=== PATIENT | female | born 1950 | race Two or more races ===

== ENCOUNTER 2016-11-24 20:40 | Inpatient (IN) | payer MEDICARE ==
--- NOTE | 2016-11-24 20:45 | ER Document Report ---
ED Medical Screen (RME) - General Stated Complaint: CHEST PAIN Time seen by provider: 20:41 Mode of Arrival: Wheelchair Information source: Patient Notes: Patient complains of chest burning that started couple hours ago. Also has shortness of breath. Denies pain radiation. Patient does have nausea and vomiting, no diarrhea. Patient states she has a lot of medical history, which is significant for diabetes and hypertension. Patient states she took Deepthi aspirin this afternoon. Has been sick with a cough and cold. Denies fever. I have greeted and performed a rapid initial assessment of this patient. A comprehensive ED assessment and evaluation of the patient, analysis of test results and completion of the medical decision making process will be conducted by additional ED providers. TRAVEL OUTSIDE OF THE [place] IN LAST 30 DAYS: No - Related Data Allergies/Adverse Reactions: No Known Allergies Allergy (Verified 02/17/13 10:26) Past Medical History - Past Medical History Cardiac Medical History: Reports: Hx Coronary Artery Disease, Hx Hypercholesterolemia, Hx Hypertension Denies: Hx Heart Attack Pulmonary Medical History: Reports: Hx Tuberculosis - hypothyroid Denies: Hx Asthma, Hx Bronchitis, Hx COPD, Hx Pneumonia Neurological Medical History: Denies: Hx Cerebrovascular Accident, Hx Seizures Endocrine Medical History: Reports: Hx Diabetes Mellitus Type 1, Hx Diabetes Mellitus Type 2, Hx Hypothyroidism GI Medical History: Reports: Hx Gastroesophageal Reflux Disease, Hx Hiatal Hernia Musculoskeltal Medical History: Reports Hx Arthritis Past Surgical History: Reports: Hx Hysterectomy, Hx Thyroid Surgery. Denies: Hx Pacemaker - Immunizations Hx Diphtheria, Pertussis, Tetanus Vaccination: Yes Physical Exam - Cardiovascular Rhythm: Regular Heart sounds: Normal auscultation - Abdominal Inspection: Normal Bowel sounds: Normal Tenderness: Tender - epigastric area
[2016-11-24 21:11] LABS: ALANINE AMINOTRANSFERASE 38 U/L (9-52); ALBUMIN 4.1 g/dL (3.5-5.0); ALKALINE PHOSPHATASE 130 U/L (38-126); ANION GAP 15 (5-19); ASPARTATE AMINO TRANSFERASE 52 U/L (14-36); BILIRUBIN,TOTAL 0.7 mg/dL (0.2-1.3); BLOOD UREA NITROGEN 21 mg/dL (7-20); CALCIUM 9.1 mg/dL (8.4-10.2); CARBON DIOXIDE 26 mmol/L (22-30); CHLORIDE 101 mmol/L (98-107); CREATINE KINASE 72 U/L (30-135); CREATININE RESULT 1.08 mg/dL (0.52-1.25); GLUCOSE 143 mg/dL (75-110); POTASSIUM 3.7 mmol/L (3.6-5.0); SODIUM 141.7 mmol/L (137-145); TOTAL PROTEIN 7.6 g/dL (6.3-8.2)
[2016-11-24 21:16] LABS: HEMATOCRIT 34.9 % (36.0-47.0); HEMOGLOBIN 11.4 g/dL (12.0-15.5); HGB HCT DIFFERENCE -0.7; MEAN CORPUSCULAR HEMOGLOBIN 25.9 pg (27.0-33.4); MEAN CORPUSCULAR HGB CONC 32.7 g/dL (32.0-36.0); MEAN CORPUSCULAR VOLUME 79 fl (80-97); RED BLOOD COUNT 4.41 10^6/uL (3.72-5.28); RED CELL DISTRIBUTION WIDTH 13.3 % (11.5-14.0); WHITE BLOOD COUNT 7.3 10^3/uL (4.0-10.5)
[2016-11-24 21:24] LABS: CREATINE KINASE MB 0.43 ng/mL (<4.55); PROTHROMBIN TIME 12.2 SEC (11.4-15.4); TROPONIN I < 0.012 ng/mL
[2016-11-24 21:37] LABS: BASOPHILS % (MANUAL) 1 % (0-2); EOSINOPHILS % (MANUAL) 0 % (0-6); LYMPHOCYTES % (MANUAL) 56 % (13-45); TOTAL CELLS COUNTED 100
[2016-11-24 21:39] LABS: HYPOCHROMASIA SLIGHT; PLATELET CLUMPS PRESENT; SMUDGE CELLS PRESENT
[2016-11-24] MEDS ORDERED: METOCLOPRAMIDE HCL ORAL SOLN 10 MG/10 ML UDCUP PO ONE (22:46)
[2016-11-24] MEDS ORDERED: LIDOCAINE 2% VISCOUS SOLN 20 ML UDCUP PO ONE (22:46)
[2016-11-24] MEDS ORDERED: MAG HYDROX/AL HYDROX/SIMETH SUSP 30 ML UDCUP PO ONE (22:46)
--- NOTE | 2016-11-24 22:51 | ER Document Report ---
ED General - General Chief Complaint: Chest Pain > 30 Stated Complaint: CHEST PAIN Mode of Arrival: Wheelchair Information source: Patient Notes: This is a 66-year-old female with a history of diabetes and hypertension among other medical problems to states that she has been sick with runny nose, coffee , and subjective fevers for the past 3 days. Today she states that she went to the pharmacy to ask the pharmacist for an ixiz-guf-[id number] cough medicine. She states that she went home and developed nausea and vomiting this evening. After she vomited she felt pain in her epigastric area radiating up into her chest which she described as feeling "on fire" at home she also felt weak and had trouble standing. Currently she still endorses epigastric discomfort that feels like a "punching pain". The pain does radiate into her central chest. She denies shortness of breath or diaphoresis. She does take Zantac for GERD and also has a history of a hiatal hernia. TRAVEL OUTSIDE OF THE [place] IN LAST 30 DAYS: No - Related Data Allergies/Adverse Reactions: No Known Allergies Allergy (Verified 02/17/13 10:26) Past Medical History - General Information source: Patient, [facility] Records - Social History Smoking Status: Never Smoker Chew tobacco use (# tins/day): No Frequency of alcohol use: None Drug Abuse: None Family History: Reviewed & Not Pertinent Patient has suicidal ideation: No Patient has homicidal ideation: No - Past Medical History Cardiac Medical History: Reports: Hx Coronary Artery Disease, Hx Hypercholesterolemia, Hx Hypertension Denies: Hx Heart Attack Pulmonary Medical History: Reports: Hx Tuberculosis - hypothyroid Denies: Hx Asthma, Hx Bronchitis, Hx COPD, Hx Pneumonia Neurological Medical History: Denies: Hx Cerebrovascular Accident, Hx Seizures Endocrine Medical History: Reports: Hx Diabetes Mellitus Type 1, Hx Diabetes Mellitus Type 2, Hx Hypothyroidism Renal/ Medical History: Denies: Hx Peritoneal Dialysis GI Medical History: Reports: Hx Gastroesophageal Reflux Disease, Hx Hiatal Hernia Musculoskeltal Medical History: Reports Hx Arthritis Past Surgical History: Reports: Hx Hysterectomy, Hx Thyroid Surgery. Denies: Hx Pacemaker - Immunizations Hx Diphtheria, Pertussis, Tetanus Vaccination: Yes Review of Systems - Review of Systems Notes: REVIEW OF SYSTEMS: CONSTITUTIONAL : As per history of present illness EENT: Sinus congestion CARDIOVASCULAR: As per history of present illness RESPIRATORY: As per history of present illness GASTROINTESTINAL: As per history of present illness. Mild constipation with last bowel movement being 2 days ago. GENITOURINARY: Denies difficulty urinating, painful urination, burning, frequency, or blood in urine. MUSCULOSKELETAL: Denies neck or back pain or joint pain or swelling. SKIN: Denies rash or skin lesions. HEMATOLOGIC : Denies easy bruising or bleeding. LYMPHATIC: Denies swollen, enlarged glands. NEUROLOGICAL: Denies altered mental status or loss of consciousness. Denies headache. PSYCHIATRIC: Denies anxiety or stress or depression. ALL OTHER SYSTEMS REVIEWED AND NEGATIVE. Physical Exam - Vital signs Vitals: Temp Pulse Resp BP Pulse Ox 97.7 F 76 20 139/52 H 97 11/24/16 20:43 11/24/16 20:43 11/24/16 20:43 11/24/16 20:43 11/24/16 20:43 - Notes Notes: PHYSICAL EXAMINATION: GENERAL: Well-appearing, well-nourished and in no acute distress. Pleasant and conversant HEAD: Atraumatic, normocephalic. EYES: Pupils equal round and reactive to light, extraocular movements intact, sclera anicteric, conjunctiva are normal. ENT: nares patent, oropharynx clear without exudates. Moist mucous membranes. NECK: Normal range of motion, supple without lymphadenopathy LUNGS: Breath sounds clear to auscultation bilaterally and equal. No wheezes rales or rhonchi. HEART: Regular rate and rhythm without murmurs ABDOMEN: Soft, epigastric tenderness to palpation.. No guarding, no rebound. No masses appreciated. EXTREMITIES: Normal range of motion, no pitting or edema. No cyanosis. NEUROLOGICAL: Cranial nerves grossly intact. Normal speech. No gross focal motor sensory deficits appreciated PSYCH: Normal mood, normal affect. SKIN: Warm, Dry, normal turgor, no rashes or lesions noted. Course - Re-evaluation Re-evalutation: Laboratory evaluation reveals significantly elevated lipase. Patient states that she has never had pancreatitis in the past. She does still have her gallbladder. She will be sent down for a CT of her abdomen. - Vital Signs Vital signs: Temp Pulse Resp BP Pulse Ox 97.7 F 76 18 129/59 H 95 11/24/16 23:32 11/24/16 23:32 11/24/16 23:32 11/24/16 23:32 11/24/16 23:32 - Laboratory Result Diagrams: 11/24/16 20:50 11/24/16 20:50 Laboratory results interpreted by me: 11/24/16 11/24/16 11/24/16 20:50 20:50 20:50 Hgb 11.4 L Hct 34.9 L MCV 79 L MCH 25.9 L Seg Neuts % (Manual) 30 L Lymphocytes % (Manual) 56 H Monocytes % (Manual) 2 L Metamyelocytes % 2 H BUN 21 H Est GFR (Non-Af Amer) 50 L Glucose 143 H AST 52 H Alkaline Phosphatase 130 H Lipase 10133.3 H - EKG Interpretation by Me Additional EKG results interpreted by me: 11/24/16 22:50 EKG at 2051 demonstrates normal sinus rhythm with a rate of 70. There is LVH. I see no ST elevation or depression. Discharge - Discharge Clinical Impression: Acute pancreatitis Qualifiers: Pancreatitis type: unspecified pancreatitis type Acute pancreatitis complication: unspecified Qualified Code(s): K85.90 - Acute pancreatitis without necrosis or infection, unspecified Cholelithiasis Qualifiers: Cholelithiasis location: gallbladder Cholecystitis presence: without cholecystitis Biliary obstruction: without biliary obstruction Qualified Code(s) : K80.20 - Calculus of gallbladder without cholecystitis without obstruction Condition: Stable Disposition: ADMITTED INPATIENT Admitting Provider: Hospitalist - Dr. Freed Unit Admitted: Medical Floor Referrals: JOHN PHILPIPE MD [Primary Care Provider] - Follow up as needed
[2016-11-24] MEDS ORDERED: PANTOPRAZOLE SODIUM 40 MG VIAL IV ONE (23:35)
[2016-11-24] MEDS ORDERED: NORMAL SALINE 1000 ML 1,000 ML IV ONE (23:35)
[2016-11-24] MEDS ORDERED: ONDANSETRON HCL INJ/PF 4 MG/2 ML SDV IV ONE (23:36)
[2016-11-25] MEDS ORDERED: INSULIN LISPRO 100 UNIT/ML 3 ML VIAL SUBCUT PRN (02:01)
[2016-11-25] MEDS ORDERED: DEXTROSE 40% GEL 15 GM TUBE PO PRN ×2 (02:01)
[2016-11-25] MEDS ORDERED: ONDANSETRON HCL INJ/PF 4 MG/2 ML SDV IV PRN ×2 (02:01→02:33)
[2016-11-25] MEDS ORDERED: DEXTROSE 50%-WATER 25 GM/50 ML DISP.SYRIN IV PRN ×2 (02:01)
[2016-11-25] MEDS ORDERED: GLUCAGON,HUMAN RECOMB 1 MG INJ IM PRN (02:01)
[2016-11-25] MEDS ORDERED: ACETAMINOPHEN 325 MG TABLET PO PRN ×2 (02:01→02:34)
[2016-11-25] MEDS ORDERED: KETOROLAC TROMETHAMINE INJ/PF 30 MG/1 ML SDV IV PRN (02:04)
[2016-11-25] MEDS ORDERED: MORPHINE SULFATE 10 MG/ML INJ IV PRN ×2 (02:04→09:52)
[2016-11-25] MEDS ORDERED: NORMAL SALINE 1000 ML 1,000 ML IV SCH ×2 (02:45→20:30)
[2016-11-25] MEDS: HEPARIN SOD (PORCINE) 5,000 UNIT/ML 1 ML SYRINGE SUBCUT SCH ×3 (05:55→22:09)
--- NOTE | 2016-11-25 06:49 | PDOC H&P ---
History of Present Illness Admission Date/PCP: 11/25/16 02:01 JOHN PHILIPPE MD Patient complains of: Chest and epigastric pain History of Present Illness: ALINE OVERTON is a 66 year old female with a past medical history of diabetes, dyslipidemia, GERD and hypertension who had been her usual state of health until approximately 3 days ago having complaints of a viral upper respiratory infection with cough, runny nose, congestion, nausea and subjective fevers. Worsening after taking nevr-dta-kzutkei cough medicine including vomiting of gastric content and subsequently sought evaluation in the emergency room where she was found to have deep epigastric pain. In the emergency room she's found to have a lipase of 12,[address] of the abdomen pelvis showing fatty infiltration of the head of the pancreas without stranding or signs of necrosis. She was started on IV fluids, symptomatic management and referred to the hospitalist for admission. Patient states she had recently been started on a medication for blood pressure possibly hydrochlorothiazide. She admits a similar presentation approximately 2 years ago with unclear diagnosis. Past Medical History Cardiac Medical History: Reports: Coronary Artery Disease, Hyperlipidema, Hypertension Denies: Myocardial Infarction Pulmonary Medical History: Reports: Tuberculosis - hypothyroid Denies: Asthma, Bronchitis, Chronic Obstructive Pulmonary Disease (COPD), Pneumonia Neurological Medical History: Denies: Seizures Endocrine Medical History: Reports: Diabetes Mellitus Type 1, Diabetes Mellitus Type 2, Hypothyroidism GI Medical History: Reports: Gastroesophageal Reflux Disease, Hiatal Hernia Musculoskeltal Medical History: Reports: Arthritis Hematology: Denies: Anemia Past Surgical History Past Surgical History: Reports: Hysterectomy Denies: Pacemaker Social History Information Source: Patient Lives with: Family Smoking Status: Never Smoker Frequency of Alcohol Use: None Hx Recreational Drug Use: No Drugs: None - Advance Directive Resuscitation Status: Full Code Family History Family History: Malignancy - Sister with breast cancer and all other family members otherwise with unknown diagnosis Parental Family History Reviewed: Yes Children Family History Reviewed: Yes Sibling(s) Family History Reviewed.: Yes Medication/Allergy Home Medications: Lisinopril 1 tab PO DAILY 07/02/12 Rosuvastatin Calcium [Crestor 20 mg Tablet] 1 tab PO DAILY 07/02/12 Esomeprazole Magnesium [Nexium] 1 tab PO DAILY 11/25/16 Glipizide [Glocotrol 10 Mg Tablet] 1 tab PO BID 11/25/16 Hydrochlorothiazide 1 tab PO DAILY 11/25/16 Levothyroxine Sodium 1 tab PO DAILY 11/25/16 Meloxicam 1 tab PO DAILY 11/25/16 Pioglitazone HCl 1 tab PO DAILY 11/25/16 Allergies/Adverse Reactions: No Known Allergies Allergy (Verified 02/17/13 10:26) Review of Systems Constitutional: PRESENT: as per HPI, anorexia, fatigue, fever(s). ABSENT: night sweats, weakness, weight loss Eyes: ABSENT: visual disturbances Ears: ABSENT: hearing changes Cardiovascular: ABSENT: chest pain, dyspnea on exertion, edema, orthropnea, palpitations Respiratory: ABSENT: cough, hemoptysis Gastrointestinal: PRESENT: abdominal pain, bloating, heartburn, nausea, vomiting. ABSENT: coffee ground emesis, constipation, diarrhea, dysphagia, hematemesis, hematochezia, melena Genitourinary: ABSENT: dysuria, hematuria Musculoskeletal: ABSENT: joint swelling Integumentary: ABSENT: rash, wounds Neurological: ABSENT: abnormal gait, abnormal speech, confusion, dizziness, focal weakness, syncope Psychiatric: ABSENT: anxiety, depression, homidical ideation, suicidal ideation Endocrine: ABSENT: cold intolerance, heat intolerance, polydipsia, polyuria Hematologic/Lymphatic: ABSENT: easy bleeding, easy bruising Physical Exam Vital Signs: Temp Pulse Resp BP Pulse Ox 98.4 F 76 18 127/59 H 98 11/25/16 06:00 11/24/16 23:32 11/25/16 06:08 11/25/16 05:58 11/25/16 06:08 General appearance: PRESENT: mild distress, obese, well-developed, well- nourished Head exam: PRESENT: atraumatic, normocephalic Eye exam: PRESENT: conjunctiva pink, EOMI, PERRLA. ABSENT: scleral icterus Ear exam: PRESENT: normal external ear exam Mouth exam: PRESENT: moist, tongue midline Neck exam: ABSENT: carotid bruit, JVD, lymphadenopathy, thyromegaly Respiratory exam: PRESENT: clear to auscultation memo. ABSENT: rales, rhonchi, wheezes Cardiovascular exam: PRESENT: RRR. ABSENT: diastolic murmur, rubs, systolic murmur Pulses: PRESENT: normal dorsalis pedis pul Vascular exam: PRESENT: normal capillary refill GI/Abdominal exam: PRESENT: distended, hyperactive bowel sounds, soft, tenderness. ABSENT: ascites, diminished bowel sounds, firm, guarding, hernia, mass, Johnson's sign, rebound, rigid Rectal exam: PRESENT: deferred Extremities exam: PRESENT: full ROM. ABSENT: calf tenderness, clubbing, pedal edema Neurological exam: PRESENT: alert, awake, oriented to person, oriented to place , oriented to time, oriented to situation, CN II-XII grossly intact. ABSENT: motor sensory deficit Psychiatric exam: PRESENT: appropriate affect, normal mood. ABSENT: homicidal ideation, suicidal ideation Skin exam: PRESENT: dry, intact, warm. ABSENT: cyanosis, rash Results Laboratory Results: 11/25/16 03:25 Troponin I < 0.012 Impressions: Chest X-Ray 11/24/16 20:44 IMPRESSION: REACTIVE AIRWAY DISEASE VERSUS VIRAL SYNDROME. NO CONSOLIDATION. Abdomen/Pelvis CT 11/24/16 23:35 IMPRESSION: Likely noncalcified cholelithiasis; cannot exclude other neoplastic process of the gallbladder. Abdominal ultrasound recommended. Assessment & Plan - Diagnosis (1) Pancreatitis, acute Qualifiers: Pancreatitis type: unspecified pancreatitis type Acute pancreatitis complication: unspecified Qualified Code(s): K85.90 - Acute pancreatitis without necrosis or infection, unspecified Is this a current diagnosis for this admission?: YesPlan: Patient has multiple risk factors for acute pancreatitis including recent URI, hydrochlorothiazide, gallstone and fatty infiltration of the head of the pancreas. I am concerned for the magnitude of lipase elevation and will consult gastroenterology. She'll be treated with symptomatic management IV fluid challenge reevaluation of chemistry with electrolyte repletion and follow- up with gastroenterology. (2) Diabetes Is this a current diagnosis for this admission?: YesPlan: Continue sliding scale insulin every 6 hours while nothing by mouth - Time Time Spent: 30 to 50 Minutes
--- NOTE | 2016-11-25 08:31 | EKG REPORT ---
SEVERITY:- ABNORMAL ECG - SINUS RHYTHM LEFT VENTRICULAR HYPERTROPHY : Confirmed by: Reji Hall MD 25-Nov-2016 08:30:49
[2016-11-25] MEDS ORDERED: ROSUVASTATIN CALCIUM PO SCH (10:00)
[2016-11-25] MEDS ORDERED: (PENDING PHARMACY ID) (Lisinopril [Lisinopril] 1 TAB) PO SCH (10:00)
[2016-11-25] MEDS ORDERED: HYDRALAZINE HCL INJ/PF 20 MG/1 ML SDV IV PRN (10:01)
--- NOTE | 2016-11-25 10:03 | PDOC PROGRESS REPORT ---
Subjective Progress Note for:: 11/25/16 Subjective:: Patient's abdominal pain is controlled. She has no nausea or vomiting. She has no prior history of pancreatitis. She has no recent or remote history of alcohol abuse. She has had several days of mild upper respiratory symptoms such as nasal congestion, watery eyes, cough. Patient denies fever, chills, headache, new focal weakness, chest pain, shortness of breath, diarrhea, constipation. Physical Exam Vital Signs: Temp Pulse Resp BP Pulse Ox 98.4 F 76 18 118/56 L 97 11/25/16 06:00 11/24/16 23:32 11/25/16 08:21 11/25/16 08:21 11/25/16 08:21 GENERAL: No acute distress HEENT: Conjunctiva clear, nonicteric, moist mucous membranes, no JVD, midline trachea RESPIRATORY: Clear to auscultation bilaterally, no wheezes, no rhonchi CARDIAC: Regular rate and rhythm, no murmurs/gallops/rubs ABDOMEN: Soft, nondistended, non-specific mild abdominal tenderness, positive bowel sounds, no rebound, no guarding EXTREMETIES: No edema, cyanosis, clubbing NEUROLOGIC: Alert, oriented to person/place/time, CN's grossly intact, no focal deficits SKIN: No rash, wounds PSYCH: Normal mood, normal affect Results Laboratory Results: 11/25/16 03:25 Troponin I < 0.012 Impressions: Chest X-Ray 11/24/16 20:44 IMPRESSION: REACTIVE AIRWAY DISEASE VERSUS VIRAL SYNDROME. NO CONSOLIDATION. Abdomen/Pelvis CT 11/24/16 23:35 IMPRESSION: Likely noncalcified cholelithiasis; cannot exclude other neoplastic process of the gallbladder. Abdominal ultrasound recommended. Assessment & Plan - Diagnosis (1) Pancreatitis, acute Qualifiers: Pancreatitis type: unspecified pancreatitis type Acute pancreatitis complication: unspecified Qualified Code(s): K85.90 - Acute pancreatitis without necrosis or infection, unspecified Is this a current diagnosis for this admission?: YesPlan: Continue nothing by mouth status. Continue IV fluids. Continue when necessary antiemetics and analgesics. Repeat lipase in the morning. Check MRCP and right upper quadrant ultrasound. Check triglyceride level. (2) Abnormal CT of the abdomen Is this a current diagnosis for this admission?: YesPlan: Abdomen/Pelvis CT 11/24/16 23:35 IMPRESSION: Likely noncalcified cholelithiasis; cannot exclude other neoplastic process of the gallbladder. Abdominal ultrasound recommended. The concern would be that patient has a neoplastic process in either the gallbladder, the head of the pancreas, or both. Check MRI of the abdomen/MRCP. Check right upper quadrant ultrasound. Depending on results of above-mentioned study patient may either need GI consult or transfer to tertiary care facility for further workup. (3) Hypertension Is this a current diagnosis for this admission?: YesPlan: Discontinue hydrochlorothiazide and NSAIDs secondary to acute pancreatitis. Continue lisinopril. When necessary IV hydralazine. (4) Hypothyroidism Is this a current diagnosis for this admission?: YesPlan: Continue Synthroid. (5) Hypercholesterolemia Is this a current diagnosis for this admission?: YesPlan: Continue Crestor. Repeat triglyceride level given acute pancreatitis. (6) Cholelithiasis Qualifiers: Cholelithiasis location: gallbladder Cholecystitis presence: without cholecystitis Biliary obstruction: without biliary obstruction Qualified Code(s): K80.20 - Calculus of gallbladder without cholecystitis without obstruction Is this a current diagnosis for this admission?: YesPlan: Check right upper quadrant ultrasound and MRCP as mentioned above. (7) Diabetes Qualifiers: Diabetes mellitus type: type 2 Is this a current diagnosis for this admission?: YesPlan: Hold glipizide while patient is nothing by mouth. Continue sliding scale insulin coverage. - Time Time Spent with patient: 35 or more minutes
[2016-11-25] MEDS: LEVOTHYROXINE SODIUM 0.075 MG TABLET PO SCH (11:06)
[2016-11-25] MEDS: PANTOPRAZOLE SODIUM 40 MG VIAL IV SCH (11:06)
[2016-11-25] MEDS: DOCUSATE SODIUM 100 MG CAPSULE PO SCH ×2 (11:07→18:37)
[2016-11-25 11:24] LABS: CHOLESTEROL 70.82 mg/dL (0-200); Direct HDL 23 mg/dL (>40); TRIGLYCERIDES 48 mg/dL (<150)
[2016-11-25 11:36] LABS: DIRECT LDL < 30 mg/dL (<100)
[2016-11-25] MEDS ORDERED: ATORVASTATIN CALCIUM 40 MG TABLET PO SCH (22:00)
[2016-11-26] MEDS: HEPARIN SOD (PORCINE) 5,000 UNIT/ML 1 ML SYRINGE SUBCUT SCH (05:06)
[2016-11-26 06:16] LABS: ABSOLUTE MONOCYTES (AUTO) 0.7 10^3/uL (0.1-1.4); ABSOLUTE NEUT (AUTO) 3.8 10^3/uL (1.7-8.2); BASOPHILS % (AUTO) 0.4 % (0-2); EOSINOPHILS % (AUTO) 0.4 % (0-6); HEMATOCRIT 31.3 % (36.0-47.0); HEMOGLOBIN 10.4 g/dL (12.0-15.5); HGB HCT DIFFERENCE -0.1; LYMPHOCYTES % (AUTO) 30.5 % (13-45); MEAN CORPUSCULAR HGB CONC 33.1 g/dL (32.0-36.0); MEAN CORPUSCULAR VOLUME 79 fl (80-97); MONOCYTES % (AUTO) 10.6 % (3-13); RED BLOOD COUNT 3.99 10^6/uL (3.72-5.28); RED CELL DISTRIBUTION WIDTH 13.5 % (11.5-14.0); SEGMENTED NEUTROPHILS % (AUTO) 58.1 % (42-78); WHITE BLOOD COUNT 6.6 10^3/uL (4.0-10.5)
[2016-11-26 06:49] LABS: ALANINE AMINOTRANSFERASE 56 U/L (9-52); ALBUMIN 3.1 g/dL (3.5-5.0); ALKALINE PHOSPHATASE 119 U/L (38-126); ANION GAP 12 (5-19); ASPARTATE AMINO TRANSFERASE 44 U/L (14-36); BILIRUBIN,TOTAL 0.6 mg/dL (0.2-1.3); BLOOD UREA NITROGEN 10 mg/dL (7-20); CARBON DIOXIDE 22 mmol/L (22-30); CHLORIDE 106 mmol/L (98-107); CREATININE RESULT 0.63 mg/dL (0.52-1.25); GLUCOSE 64 mg/dL (75-110); LIPASE 825.8 U/L (23-300); POTASSIUM 3.7 mmol/L (3.6-5.0); SODIUM 140.2 mmol/L (137-145); TOTAL PROTEIN 6.3 g/dL (6.3-8.2)
[2016-11-26] MEDS ORDERED: LISINOPRIL 10 MG TABLET PO SCH (10:00)
[2016-11-26] MEDS: LEVOTHYROXINE SODIUM 0.075 MG TABLET PO SCH (10:18)
[2016-11-26] MEDS: DOCUSATE SODIUM 100 MG CAPSULE PO SCH (10:18)
[2016-11-26] MEDS: PANTOPRAZOLE SODIUM 40 MG VIAL IV SCH (10:18)
[2016-11-26 12:08] VITALS: BP 150/63
--- NOTE | 2016-11-26 14:28 | PDOC DISCHARGE SUMMARY ---
General - Admit/Disc Date/PCP Admission Date/Primary Care Provider: 11/25/16 02:01 JOHN PHILIPPE MD Discharge Date: 11/26/16 - Discharge Diagnosis (1) Pancreatitis, acute Is this a current diagnosis for this admission?: YesSummary: Patient was felt to have acute pancreatitis secondary to gallstones. The patient had an MRCP that showed no obvious problems. Patient had complete resolution of her symptoms and had no further pain. And will be set up as an outpatient for consideration of a cholecystectomy. (2) Cholelithiasis Is this a current diagnosis for this admission?: YesSummary: Patient was found to have a 16 mm stone present. There was some concern initially because of pancreatic head edema however clinically she did not have cholangitis. Patient after having bowel rest overnight had complete resolution of her symptoms. She has tolerated a diet without difficulty and we'll refer her to her primary care doctor and will defer referral for consideration of cholecystectomy to her primary care doctor. Patient's other medical problems were stable during this hospitalization. (3) Diabetes Is this a current diagnosis for this admission?: Yes (4) Hypercholesterolemia Is this a current diagnosis for this admission?: Yes (5) Hypertension Is this a current diagnosis for this admission?: Yes - Additional Information Resuscitation Status: Full Code Discharge Diet: Diabetic Discharge Activity: Activity As Tolerated Home Medications: Aspirin [Aspirin EC] 81 mg PO DAILY 11/25/16 Dexlansoprazole [Dexilant 30 mg Capsule] 30 mg PO DAILY 11/25/16 Glipizide [Glipizide Xl] 10 mg PO BID 11/25/16 Hydrochlorothiazide [Hydrodiuril 25 mg Tablet] 25 mg PO DAILY 11/25/16 Ibuprofen [Motrin 800 mg Tablet] 800 mg PO TIDP PRN 11/25/16 Levothyroxine Sodium [Synthroid] 75 mcg PO DAILY 11/25/16 Lisinopril [Zestril] 20 mg PO BID 11/25/16 Metformin HCl [Glucophage] 500 mg PO BID 11/25/16 Rosuvastatin Calcium [Crestor 20 mg Tablet] 20 mg PO DAILY 11/25/16 Sitagliptin Phosphate [Januvia] 100 mg PO DAILY 11/25/16 History of Present Illness History of Present Illness: ALINE OVERTON is a 66 year old female with a past medical history diabetes and acid reflux who presented with a three-day history of a viral upper respiratory syndrome with cough and runny nose. Patient then began developed vomiting and crampy gastric pain abdominal pain. The patient was found to have a lipase of 12,000 she presented and a CT of the abdomen showed fatty infiltration of the head of the pancreas. Patient is admitted for further treatment. Hospital Course Hospital Course: 58-year-old female who presented with epigastric pain after an upper respiratory viral illness. The patient was found to have pancreatitis as well as some edema of the pancreatic head. MRCP was done and showed her to have a 16 mm gallstone no obvious tumor. Patient was placed on bowel rest overnight and had complete resolution of her symptoms. Given the fact that she had quick resolution it is felt that possibly she had another gallstone that she passed as the cause for her symptoms. She has tolerated resumption of diet and we will for her to her primary care doctor for follow-up and her primary care doctor can decide whether or not to send her for cholecystectomy given the fact that she has a large 16mm stone. The rest of her medical problems were stable during this hospitalization. Physical Exam Vital Signs: Temp Pulse Resp BP Pulse Ox 98.2 F 81 16 150/63 H 100 11/26/16 12:00 11/26/16 14:00 11/26/16 12:00 11/26/16 12:00 11/26/16 12:00 Intake & Output 11/25/16 11/26/16 11/27/16 06:59 06:59 06:59 Intake Total 2200 300 Output Total 750 500 Balance 1450 -200 Weight 99.9 kg General appearance: PRESENT: no acute distress Eye exam: PRESENT: conjunctiva pink. ABSENT: scleral icterus Ear exam: PRESENT: normal external ear exam Mouth exam: PRESENT: moist, tongue midline Neck exam: ABSENT: JVD Respiratory exam: PRESENT: clear to auscultation memo. ABSENT: rales, rhonchi, wheezes Cardiovascular exam: PRESENT: RRR. ABSENT: diastolic murmur, rubs, systolic murmur GI/Abdominal exam: PRESENT: normal bowel sounds, soft. ABSENT: distended, guarding, mass, organolmegaly, rebound, tenderness Extremities exam: ABSENT: calf tenderness, clubbing, pedal edema Neurological exam: PRESENT: alert, awake, oriented to person, oriented to place , oriented to time, oriented to situation, CN II-XII grossly intact. ABSENT: motor sensory deficit Psychiatric exam: PRESENT: appropriate affect Skin exam: PRESENT: dry, intact, warm. ABSENT: cyanosis, rash Results Laboratory Results: 11/26/16 05:15 11/26/16 05:15 11/26/16 11/26/16 05:15 05:15 WBC 6.6 RBC 3.99 Hgb 10.4 L Hct 31.3 L MCV 79 L MCH 26.0 L MCHC 33.1 RDW 13.5 Plt Count 196 Seg Neutrophils % 58.1 Lymphocytes % 30.5 Monocytes % 10.6 Eosinophils % 0.4 Basophils % 0.4 Absolute Neutrophils 3.8 Absolute Lymphocytes 2.0 Absolute Monocytes 0.7 Absolute Eosinophils 0.0 Absolute Basophils 0.0 Sodium 140.2 Potassium 3.7 Chloride 106 Carbon Dioxide 22 Anion Gap 12 BUN 10 Creatinine 0.63 Est GFR ( Amer) > 60 Est GFR (Non-Af Amer) > 60 Glucose 64 L Calcium 8.0 L Total Bilirubin 0.6 AST 44 H ALT 56 H Alkaline Phosphatase 119 Total Protein 6.3 Albumin 3.1 L Lipase 825.8 H 11/25/16 03:25 Troponin I < 0.012 Impressions: Chest X-Ray 11/24/16 20:44 IMPRESSION: REACTIVE AIRWAY DISEASE VERSUS VIRAL SYNDROME. NO CONSOLIDATION. Abdomen/Pelvis CT 11/24/16 23:35 IMPRESSION: Likely noncalcified cholelithiasis; cannot exclude other neoplastic process of the gallbladder. Abdominal ultrasound recommended. Abdomen MRI 11/25/16 00:00 IMPRESSION: 16 mm gallstone in the lumen of the gallbladder.Mild adjacent inflammation in the head-neck area of the pancreas. No dilated ducts. No masses identified on this non-contrasted study. Abdomen Ultrasound 11/25/16 09:58 IMPRESSION: 1. Cholelithiasis, positive Johnson's sign, without gallbladder wall thickening, or pericholecystic inflammatory changes/fluid. These are nonspecific findings and may be suggestive of underlying acute cholecystitis. Correlate clinically. 2. Limited exam due to overlying bowel gas. No other significant abnormality identified. . Qualifiers PATEINT BEING DISCHARGED WITH ANY OF THE FOLLOWING DIAGNOSIS?: No Plan Discharge Plan: Patient is discharged home in stable condition. Follow-up with her primary care doctor in 2 weeks. Time Spent: Less than 30 Minutes
== END 2016-11-26 15:51 | disposition home or self-care (01) | DRG 439 ==
LOC: ER 20:40 → EH 11-25 02:01 → 4S 11-25 16:57
PROVIDERS: ADMIT Internal Medicine; ATTEND Internal Medicine
DX: K85.10 Biliary acute pancreatitis without necrosis or infection (principal); Z68.41 Body mass index [BMI] 40.0-44.9, adult; K80.20 Calculus of gallbladder without cholecystitis without obstruction; I10 Essential (primary) hypertension; E03.9 Hypothyroidism, unspecified; E11.9 Type 2 diabetes mellitus without complications; E66.9 Obesity, unspecified; E78.5 Hyperlipidemia, unspecified; K21.9 Gastro-esophageal reflux disease without esophagitis; I25.10 Atherosclerotic heart disease of native coronary artery without angina pectoris; M19.90 Unspecified osteoarthritis, unspecified site; Z79.899 Other long term (current) drug therapy; Z86.11 Personal history of tuberculosis; Z80.3 Family history of malignant neoplasm of breast; Z79.84 Long term (current) use of oral hypoglycemic drugs
CPT/HCPCS: 36415; 71010; 74177; 74181; 76705; 80053; 80061; 82550; 82553; 82962; 83690; 84484; 85025; 85610; 93005; 93010; 93976; 96361; 96374; 96375; 99285; J1644; J1815; J2405; J3490; J7030; S0164

== ENCOUNTER 2016-12-16 06:42 | Inpatient (IN) | payer MEDICARE ==
[2016-12-14 11:10] LABS: HEMATOCRIT 35.5 % (36.0-47.0); HEMOGLOBIN 11.5 g/dL (12.0-15.5); MEAN CORPUSCULAR HEMOGLOBIN 25.5 pg (27.0-33.4); MEAN CORPUSCULAR HGB CONC 32.4 g/dL (32.0-36.0); MEAN CORPUSCULAR VOLUME 79 fl (80-97); RED BLOOD COUNT 4.52 10^6/uL (3.72-5.28); RED CELL DISTRIBUTION WIDTH 13.6 % (11.5-14.0); WHITE BLOOD COUNT 8.1 10^3/uL (4.0-10.5)
[2016-12-14 11:44] LABS: ALANINE AMINOTRANSFERASE 27 U/L (9-52); ALBUMIN 4.2 g/dL (3.5-5.0); ALKALINE PHOSPHATASE 84 U/L (38-126); AMYLASE 47 U/L (30-110); ANION GAP 14 (5-19); ASPARTATE AMINO TRANSFERASE 18 U/L (14-36); BILIRUBIN,DIRECT 0.1 mg/dL (0.0-0.4); BILIRUBIN,TOTAL 0.5 mg/dL (0.2-1.3); BLOOD UREA NITROGEN 21 mg/dL (7-20); CALCIUM 9.9 mg/dL (8.4-10.2); CARBON DIOXIDE 27 mmol/L (22-30); CHLORIDE 103 mmol/L (98-107); CREATININE RESULT 0.74 mg/dL (0.52-1.25); GLUCOSE 119 mg/dL (75-110); POTASSIUM 4.5 mmol/L (3.6-5.0); SODIUM 143.6 mmol/L (137-145); TOTAL PROTEIN 7.9 g/dL (6.3-8.2)
[~2016-12-16 06:42] MED LIST: ACETAMINOPHEN 325 MG TABLET PO PRN; CEFAZOLIN 1 GM/D5W RTU 1 GM/50 ML RTUPB IV PRN; LACTATED RINGERS 1000 ML IV PRN; LIDOCAINE 0.5% INJ-PF (5 MG/ML) 50 ML SDV SUBCUT PRN
[2016-12-16] MEDS ORDERED: BUPIVACAINE HCL 0.25 % INJ/PF (2.5 MG/1 ML) 30 ML VIAL ONE ×2 (07:29→09:38)
[2016-12-16] MEDS ORDERED: MIDAZOLAM 2 MG/2 ML INJ ONE (08:42)
[2016-12-16] MEDS ORDERED: PROPOFOL INJ 200 MG/20 ML VIAL IV ONE (08:42)
[2016-12-16] MEDS ORDERED: FENTANYL CITRATE INJ/PF 250 MCG/5 ML AMPULE ONE (08:42)
[2016-12-16] MEDS ORDERED: ACETAMINOPHEN 100 ML IV ONE (08:42)
[2016-12-16] MEDS ORDERED: MORPHINE SULFATE 10 MG/ML INJ ONE (08:43)
[2016-12-16] MEDS ORDERED: FENTANYL CITRATE INJ/PF 100 MCG/2 ML AMPUL IV PRN ×3 (09:37)
[2016-12-16] MEDS ORDERED: OXYCODONE-ACETAMINOPHEN 5-325 MG TABLET PO PRN ×3 (09:37→12:06)
[2016-12-16] MEDS ORDERED: DIPHENHYDRAMINE HCL 50 MG/ML VIAL IV PRN (09:37)
[2016-12-16] MEDS ORDERED: PROMETHAZINE HCL INJ 25 MG/1 ML VIAL IV PRN ×2 (09:37)
[2016-12-16] MEDS ORDERED: MORPHINE SULFATE 10 MG/ML INJ IV PRN (09:37)
[2016-12-16] MEDS ORDERED: MEPERIDINE HCL/PF INJ 25 MG/1 ML DISP.SYRIN IV PRN (09:37)
[2016-12-16] MEDS ORDERED: ONDANSETRON HCL INJ/PF 4 MG/2 ML SDV IV PRN (12:06)
[2016-12-16] MEDS ORDERED: DEXTROSE 5%-LACTATED RINGERS 1,000 ML IV PRN (12:06)
--- NOTE | 2016-12-16 12:07 | Operative Report ---
Operative Report DATE OF SURGERY: 12/16/16 PREOPERATIVE DIAGNOSIS: 1. Symptomatic cholelithiasis with acute cholecystitis. 2. Gallstone pancreatitis. 3. Morbid obesity POSTOPERATIVE DIAGNOSIS: Same with. 1. Biliary hydrops. 2. Common bile duct dilatation. 3. Intra-abdominal adhesions OPERATION: 1. Laparoscopic lysis of adhesions. 2. laparoscopic cholecystectomy. 3 intraoperative cholangiography for interpretation of intraoperative cholangiography. 4. Placement of 2 drains one in the subhepatic space, and a second over the central mesentery. 5. 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 General Anesthesia was induced; the arms were extended, and the abdomen was exposed, and prepped and draped in a sterile fashion. Instrumentation was set up for laparoscopic cholecystectomy. Surgical plan and surgical timeout were conducted. A vertical incision was made above the umbilicus, and a verres needle was inserted uneventfully into the peritoneal cavity. Pneumoperitoneum was established. The verres needle was removed and a 5 mm trocar was inserted and a 5 mm flexible laparoscope was inserted. Visualization of the peritoneal cavity confirmed safe uneventful entry. Under direct visualization 3 additional 5 mm ports were established, one in the subxiphoid position and second in the subcostal position. The challenges of this operation were multifactorial including morbid obesity, acutely inflamed gallbladder, very limited intra-abdominal space due to all abdominal cavity. The gallbladder was found to be acutely inflamed and distended. It was aspirated with the largest sharp trocar of approximate 60 mL of clear bile consistent with biliary hydrops. We put a fifth port in the patient to be used for retraction of the Melanie duodenal tissue. A oral gastric tube was inserted and the stomach was successfully decompressed. Between the inferior surface of the gallbladder, the gastroduodenal area, all dissection performed sharply under excellent visualization. This enabled us to get a 3 pronged retractor holding the gastric duodenal and greater omental area dorsally. We now spent a fair amount of time attempting to dissect out the relevant anatomy in the region of the infundibulum. Because of the dense adhesions, despite a valiant effort with excellent assistance in excellent visualization, we used to shift to a top down approach. This was effected by repositioning our graspers and taking the gallbladder down from the fundus. Unfortunately this also proved to be extremely challenging. Into both the lumen of the gallbladder as well as liver parenchyma trying to stay in the appropriate plane , but again due to the density of the adhesions, and the tenacious mass of the adhesions, this dissection was extremely difficult. Eventually we got down to the point where the neck of the gallbladder was tapering towards what would be the cystic duct and the cystic artery. Dissecting these 2 structures was extremely difficult because whenever we placed tension gallbladder to extract it from the ointment of attachment, the dissection of the specific structures, the cystic artery and the cystic duct were nearly impossible. This was primarily due to difficulty exposing this very small opening to perform the dissection. Test test test Decided at this point to place a 3-0 PDS suture around the neck of the gallbladder and this was effected. An placed a more proximal PDS suture and then divided the gallbladder from its points of attachment. In the process of doing so, we used multiple clips to secure the cystic artery which did bleed approximately 25-30 mL. We now removed the gallbladder off out of the field of dissection and proceeded with our next step of the operation which was cholangiography A flexible cholangiogram catheter was threaded through one of the trochars, and advanced into the cystic duct stump. It was secured in place with a clip. We leveled the patient now, removed laparoscopic instruments and proceeded with angiography using 300 Isovue approximately 6 mL. This was a successful cholangiogram in that it demonstrated no leak of bile, rapid egress of contrast into the duodenum, with a moderately dilated common bile duct, and early, but incomplete visualization of the intrahepatic biliary tree. This was discussed with Dr. Chamberlain intraoperatively who agreed with the interpretation of above. Neuro cavity, removed our clip and cholangiogram catheter and placed a additional 3-0 PDS loop securing the cystic duct stump. The stasis was very good however drain was placed to one of our existing ports, a large Filiberto- Mcgee, terminating in the subhepatic space. With some Surgicel under the raw surface of the right lobe of the liver. COunts were correct; ports removed; during grasping of the fascia to close the supraumbilical trochar site, I was concerned viscera may have been grasped, so all posrt were replaced, scope and C0 2 resumed, and examination of viscera undertaken. This required Ligasure device to take down omentum from the abdominal wall inferiorly; We examined the SB and no evidence of injury was identified; a second large esther drain was placed thru another port site, and both drains secured with 2- 0 prolene. All ports removed, air evacuated, and wounds closed with 0 and 3-0 vicryl Mrs. Valle assisted with the entire case OF NOTE: Ava broke down mid dictation ! All ports removed under direct visualization pneumoperitoneum evacuated, and 5 mm port wounds closed with 3-0 Vicryl suture, benzoin and Steri-Strips. The patient was extubated, and taken to the recovery room in stable condition.
[2016-12-16] MEDS: FENTANYL CITRATE INJ/PF 100 MCG/2 ML AMPUL ONE ×2 (12:30→12:40)
[2016-12-16] MEDS ORDERED: NEOSTIGMINE METHYLSULFATE 10 MG/10 ML VIAL ONE (13:33)
[2016-12-16] MEDS ORDERED: DEXAMETHASONE SOD PHOSPHATE INJ 4 MG/1 ML VIAL ONE (13:33)
[2016-12-16] MEDS ORDERED: ONDANSETRON HCL INJ/PF 4 MG/2 ML SDV ONE (13:33)
[2016-12-16] MEDS ORDERED: GLYCOPYRROLATE INJ 0.4 MG/2 ML VIAL ONE (13:33)
[2016-12-16] MEDS ORDERED: SUCCINYLCHOLINE CHLORIDE INJ 200 MG/10 ML VIAL ONE (13:33)
[2016-12-16] MEDS ORDERED: ROCURONIUM BROMIDE INJ 50 MG/5 ML VIAL IV ONE (13:33)
[2016-12-16] MEDS ORDERED: METOCLOPRAMIDE HCL INJ/PF 10 MG/2 ML SDV ONE (13:33)
[2016-12-16] MEDS ORDERED: DEXTROSE 40% GEL 15 GM TUBE PO PRN ×2 (14:43)
[2016-12-16] MEDS ORDERED: GLUCAGON,HUMAN RECOMB 1 MG INJ IM PRN (14:43)
[2016-12-16] MEDS ORDERED: INSULIN REG, HUMAN 100 UNIT/ML 3 ML VIAL (PYX) SUBCUT PRN (14:43)
[2016-12-16] MEDS ORDERED: DEXTROSE 50%-WATER 25 GM/50 ML DISP.SYRIN IV PRN ×2 (14:43)
[2016-12-16] MEDS: MORPHINE SULFATE 10 MG/ML INJ IV PRN ×2 (15:21→19:36)
[2016-12-16] MEDS: LISINOPRIL 10 MG TABLET PO SCH (22:25)
[2016-12-17] MEDS: MORPHINE SULFATE 10 MG/ML INJ IV PRN (04:43)
[2016-12-17 06:26] LABS: ALANINE AMINOTRANSFERASE 76 U/L (9-52); ALBUMIN 3.5 g/dL (3.5-5.0); ALKALINE PHOSPHATASE 64 U/L (38-126); ASPARTATE AMINO TRANSFERASE 61 U/L (14-36); BILIRUBIN,DIRECT 0.2 mg/dL (0.0-0.4); BILIRUBIN,TOTAL 0.7 mg/dL (0.2-1.3); TOTAL PROTEIN 6.8 g/dL (6.3-8.2)
[2016-12-17] MEDS ORDERED: METFORMIN HCL 500 MG TABLET PO SCH ×2 (08:00→10:00)
[2016-12-17] MEDS ORDERED: GLIPIZIDE 10 MG TABLET PO SCH (08:00)
[2016-12-17] MEDS: LISINOPRIL 10 MG TABLET PO SCH (09:10)
[2016-12-17] MEDS ORDERED: FAMOTIDINE INJ/PF 20 MG/2 ML SDV IV ONE (09:30)
[2016-12-17] MEDS ORDERED: (PENDING PHARMACY ID) (Lisinopril [Zestril] 20 MG) PO SCH (10:00)
[2016-12-17] MEDS ORDERED: HYDROCHLOROTHIAZIDE 25 MG TABLET PO SCH (10:00)
[2016-12-17] MEDS ORDERED: GLIPIZIDE XL 5 MG TAB.ER.24 PO SCH ×2 (10:00→17:00)
[2016-12-17] MEDS ORDERED: LANSOPRAZOLE 30 MG TAB.RAP.DR PO ONE (10:15)
--- NOTE | 2016-12-17 10:44 | PDOC PROGRESS REPORT ---
Subjective Progress Note for:: 12/17/16 Subjective:: abdomen distended, but no nausea. moderate upper abdominal pain Physical Exam Vital Signs: Temp Pulse Resp BP Pulse Ox 98.8 F 113 H 20 133/76 H 97 12/17/16 08:27 12/17/16 08:27 12/17/16 08:27 12/17/16 08:27 12/17/16 08:27 Intake & Output 12/16/16 12/17/16 12/18/16 06:59 06:59 06:59 Intake Total 0 3630 Output Total 260 Balance 0 3370 Weight 101.6 kg 99 kg General appearance: PRESENT: no acute distress, cooperative Respiratory exam: PRESENT: clear to auscultation memo Cardiovascular exam: PRESENT: RRR GI/Abdominal exam: PRESENT: other - mildly distended, soft, tenderness upper abdomen without peritoneal signs. javier dark drainage. Extremities exam: PRESENT: other - no swelling, no tenderness Results Laboratory Results: 12/14/16 10:18 12/14/16 10:18 12/17/16 05:50 Total Bilirubin 0.7 AST 61 H ALT 76 H Alkaline Phosphatase 64 Total Protein 6.8 Albumin 3.5 Impressions: Cholangiogram 12/16/16 00:00 IMPRESSION: INTRAOPERATIVE CHOLANGIOGRAM. Assessment & Plan - Diagnosis (1) Cholelithiasis Qualifiers: Cholecystitis presence: with cholecystitis Cholecystitis acuity: acute and chronic Is this a current diagnosis for this admission?: YesPlan: s/p lap angel. drain output dark and with some distension and tenderness. keep npo. ivf, abx. observe.
[2016-12-17] MEDS ORDERED: LISINOPRIL 10 MG TABLET PO ONE (11:00)
[2016-12-17] MEDS ORDERED: LEVOTHYROXINE SODIUM 0.075 MG TABLET PO ONE (11:00)
[2016-12-17 12:35] VITALS: BP 124/59
[2016-12-17] MEDS ORDERED: LISINOPRIL 10 MG TABLET PO SCH (22:00)
[2016-12-17] MEDS ORDERED: ATORVASTATIN CALCIUM 40 MG TABLET PO SCH (22:00)
[2016-12-18] MEDS ORDERED: LANSOPRAZOLE 30 MG TAB.RAP.DR PO SCH ×2 (06:00)
[2016-12-18] MEDS ORDERED: LEVOTHYROXINE SODIUM 0.075 MG TABLET PO SCH (08:00)
--- NOTE | 2016-12-22 07:38 | DISCHARGE SUMMARY E ---
Discharge Summary NAME: ALINE OVERTON : 1950 AGE: 66Y ADMITTED: 12/16/2016 DISCHARGED: 12/17/2016 REASON FOR ADMISSION: Observation following laparoscopic cholecystectomy. SUMMARY OF HOSPITALIZATION: The patient is a 66-year-old female who was admitted to the hospital following laparoscopic cholecystectomy with cholangiography. This was a prolonged operation and required drain placement for monitoring. Overnight, the patient did well, got started on a diet and this was advanced and tolerated well. Her intraabdominal cholangiogram showed no evidence of retained stones and good efflux of contrast into the duodenum. Visualization of the distal bile duct was limited. The following morning, the patient's liver function studies were essentially unremarkable, AST and ALT minimally elevated. Total bilirubin and alkaline phosphatase normal. The patient was started on a diet and this was advanced and tolerated well. She was discharged home to the care of her family. FINAL DIAGNOSES: 1. Symptomatic cholelithiasis with cholecystitis. 2. Status post laparoscopic cholecystectomy with intraoperative cholangiography by Dr. Reardon. DISPOSITION: The patient was discharged home to care of her family. Follow up with Dr. Reardon at the [facility] in approximately 1 week. Resume preoperative medications, diet and activity. DICTATING PHYSICIAN: DAT REARDON M.D. [id number] Y#: [id number] ID: [id number] JOB#: [id number] ACCT: [id number] cc:DAT REARDON M.D. >
== END 2016-12-17 15:15 | disposition home or self-care (01) | DRG 418 ==
LOC: OROUT 06:42 → 2N 12:06 → OBSVTOIN 14:00
PROVIDERS: ADMIT Surgery; ATTEND Surgery
PROC: 0DN64ZZ Release Stomach, Percutaneous Endoscopic Approach (ICD-10-PCS; 2016-12-16)
PROC: BF001ZZ Plain Radiography of Bile Ducts using Low Osmolar Contrast (ICD-10-PCS; 2016-12-16)
PROC: 0W9F40Z Drainage of Abdominal Wall with Drainage Device, Percutaneous Endoscopic Approach (ICD-10-PCS; 2016-12-16)
PROC: 0FT44ZZ Resection of Gallbladder, Percutaneous Endoscopic Approach (ICD-10-PCS; principal; 2016-12-16 09:00)
DX: K80.12 Calculus of gallbladder with acute and chronic cholecystitis without obstruction (principal); K82.1 Hydrops of gallbladder; E07.9 Disorder of thyroid, unspecified; E11.9 Type 2 diabetes mellitus without complications; I10 Essential (primary) hypertension; E78.00 Pure hypercholesterolemia, unspecified; K82.8 Other specified diseases of gallbladder; K44.9 Diaphragmatic hernia without obstruction or gangrene; E66.01 Morbid (severe) obesity due to excess calories; Z68.39 Body mass index [BMI] 39.0-39.9, adult; Z90.710 Acquired absence of both cervix and uterus; Z79.899 Other long term (current) drug therapy
CPT/HCPCS: 36415; 74300; 790; 80048; 80076; 82150; 82962; 85027; 88304; J0131; J0330; J0690; J1100; J1815; J2250; J2270; J2405; J2704; J2765; J3010; J3490; S0028

== ENCOUNTER → 2019-11-09 | Outpatient (CLI) | payer MEDICARE ==
[2019-11-09 08:48] LABS: ANION GAP 10 (5-19); BLOOD UREA NITROGEN 18 mg/dL (7-20); CALCIUM 9.2 mg/dL (8.4-10.2); CARBON DIOXIDE 26 mmol/L (22-30); CHLORIDE 104 mmol/L (98-107); GLUCOSE 116 mg/dL (75-110); POTASSIUM 4.9 mmol/L (3.6-5.0); TRIGLYCERIDES 99 mg/dL (<150)
[2019-11-09 08:59] LABS: DIRECT LDL 86 mg/dL (<100)
[2019-11-10 11:37] LABS: CREATININE URINE 62.8 mg/dL (Not Estab.)
[2019-11-10 12:38] LABS: MICROALBUMIN URINE <3.0 ug/mL (Not Estab.)
== END ==
LOC: OD 07:11
PROVIDERS: ATTEND Family Medicine
DX: E11.65 Type 2 diabetes mellitus with hyperglycemia (principal); E03.9 Hypothyroidism, unspecified; I10 Essential (primary) hypertension; Z79.899 Other long term (current) drug therapy
CPT/HCPCS: 36415; 80048; 80061; 82043; 82570; 83036; 84443

== ENCOUNTER → 2020-05-03 | Outpatient (CLI) | payer MEDICARE | LOC: OD 10:14 | PROVIDERS: ATTEND Family Medicine | DX: E11.9 Type 2 diabetes mellitus without complications (principal); Z79.899 Other long term (current) drug therapy | CPT/HCPCS: 36415; 82150; 83036 ==

== ENCOUNTER → 2020-08-07 | Outpatient (CLI) | payer MEDICARE ==
[2020-08-07 09:09] LABS: ANION GAP 11 (5-19); BLOOD UREA NITROGEN 20 mg/dL (7-20); CALCIUM 9.7 mg/dL (8.4-10.2); CARBON DIOXIDE 23 mmol/L (22-30); CHLORIDE 105 mmol/L (98-107); CHOLESTEROL 86.21 mg/dL (0-200); GLUCOSE 109 mg/dL (75-110); POTASSIUM 4.6 mmol/L (3.6-5.0); TRIGLYCERIDES 83 mg/dL (<150)
[2020-08-07 09:19] LABS: DIRECT LDL 31 mg/dL (<100)
--- OUTSIDE RECORDS SUMMARY | 2020-08-08 18:02 | XMS REPORT ---
:1950 [facility] [place] [address] [place] [id number] Care Team Providers Name Role Phone Anthony Attending Clinician Unavailable Allergies, Adverse Reactions, Alerts This patient has no known allergies or adverse reactions. Medications This patient has no known medications. Problems This patient has no known problems. Procedures Procedure Date / Time Performed Performing Clinician Devic e OFFICE OUTPATIENT VISIT 15 MINUTES 2017-10-22 09:13:00 INTRAMUSCULAR INJECTION OF SEASONAL 2017-08-31 11:36:00 INFLUENZA VACCINE, 4 yrs. \T\ Older (Flucelvax) ([id number]) OFFICE OUTPATIENT VISIT 15 MINUTES 2017-06-11 10:52:00 OFFICE OUTPATIENT VISIT 15 MINUTES 2017-03-09 08:18:00 OFFICE OUTPATIENT VISIT 15 MINUTES 2016-12-07 09:43:00 OFFICE OUTPATIENT VISIT 15 MINUTES 2016-12-04 11:08:00 INTRAMUSCULAR ADMINISTRATION OF 2016-10-22 09:07:00 SEASONAL INFLUENZA VACCINE (Flucelvax) ([id number]) OFFICE OUTPATIENT VISIT 15 MINUTES 2016-10-22 08:25:00 OFFICE OUTPATIENT VISIT 15 MINUTES 2016-08-14 08:41:00 OFFICE OUTPATIENT VISIT 15 MINUTES 2016-02-25 13:06:00 OFFICE OUTPATIENT VISIT 15 MINUTES 2015-11-19 08:54:00 Results Test Description Test Time Test Comments Text Results Atomic Results Result Comments Comp. Metabolic Panel ([id number]) ([id number]) 2017-10-23 00:00:00 Test Item Value Reference Range Comments Protein, Total, Serum (test code = 2885-2) 7.4 g/dL 6.0-8 .5 Alkaline Phosphatase, S (test code = 6768-6) 68 IU/L 39- 117 Creatinine, Serum (test code = 2160-0) 0.77 mg/dL 0.57-1.00 ALT (SGPT) (test code = 1742-6) 20 IU/L 0-32 BUN (test code = 3094-0) 12 mg/dL 8-27 Bilirubin, Total (test code = 1975-2) 0.5 mg/dL 0.0-1.2 Glucose, Serum (test code = 2345-7) 190 mg/dL 65-99 A/G Ratio (test code = 1759-0) 1.3 1.2-2.2 Globulin, Total (test code = 26714-4) 3.2 g/dL 1.5-4.5 Potassium, Serum (test code = 2823-3) 4.2 mmol/L 3.5-5.2 Carbon Dioxide, Total (test code = 8-9) 23 mmol/L 18-29 Chloride, Serum (test code = 2075-0) 100 mmol/L 96-106 Calcium, Serum (test code = 17342-9) 9.4 mg/dL 8.7-10.3 eGFR If Africn Am (test code = 91471-6) 91 mL/min/1.73 >59 eGFR If NonAfricn Am (test code = 02810-268) 79 mL/min/1.73 >59 Albumin, Serum (test code = 1751-7) 4.2 g/dL 3.6-4.8 BUN/Creatinine Ratio (test code = 3097-3) 16 12-28 Sodium, Serum (test code = 2951-2) 140 mmol/L 134-144 AST (SGOT) (test code = 1920-8) 20 IU/L 0-40 Hgb A1c with eAG Estimation ([id number])2017-10-23 00:00:00 Test Item Value Reference Range Comments Estim. Avg Glu (eAG) (test code = 70411-8) 169 mg/dL Hemoglobin A1c (test code = 4548-4) 7.5 % 4.8-5.6 Lipase Serum ([id number]) (82636)2017-06-15 00:00:00 Test Item Value Reference Range Comments Lipase, Serum (test code = 3040-3) 22 U/L 0-59 Lipid Panel ([id number]) (34283)2017-03-11 00:00:00 Test Item Value Reference Range Comments Cholesterol, Total (test code = 2093-3) 83 mg/dL 100-199 Triglycerides (test code = 2571-8) 75 mg/dL 0-149 LDL Cholesterol Calc (test code = 48259-6) 27 mg/dL 0-99 HDL Cholesterol (test code = 2085-9) 41 mg/dL >39 VLDL Cholesterol Owen (test code = 46919-4) 15 mg/dL 5-40 Hgb A1c with eAG Estimation ([id number])2017-03-11 00:00:00 Test Item Value Reference Range Comments Estim. Avg Glu (eAG) (test code = 79181-5) 163 mg/dL Hemoglobin A1c (test code = 4548-4) 7.3 % 4.8-5.6 Comp. Metabolic Panel ([id number]) (53381)2017-03-11 00:00:00 Test Item Value Reference Range Comments BUN (test code = 3094-0) 12 mg/dL 8-27 BUN/Creatinine Ratio (test code = 3097-3) 21 12-28 Potassium, Serum (test code = 2823-3) 4.8 mmol/L 3.5-5.2 ALT (SGPT) (test code = 1742-6) 11 IU/L 0-32 Glucose, Serum (test code = 2345-7) 121 mg/dL 65-99 eGFR If Africn Am (test code = 58877-4) 110 mL/min/1.73 >59 Globulin, Total (test code = 50866-4) 3.2 g/dL 1.5-4.5 eGFR If NonAfricn Am (test code = 89855-2) 96 mL/min/1.73 >59 Calcium, Serum (test code = 13009-4) 9.0 mg/dL 8.7-10.3 AST (SGOT) (test code = 1920-8) 15 IU/L 0-40 Chloride, Serum (test code = 2075-0) 103 mmol/L 96-106 Carbon Dioxide, Total (test code = 8-9) 21 mmol/L 18-29 Protein, Total, Serum (test code = 2885-2) 7.1 g/dL 6.0-8 .5 Alkaline Phosphatase, S (test code = 6768-6) 81 IU/L 39- 117 Albumin, Serum (test code = 1751-7) 3.9 g/dL 3.6-4.8 Bilirubin, Total (test code = 1975-2) 0.4 mg/dL 0.0-1.2 Sodium, Serum (test code = 2951-2) 141 mmol/L 134-144 A/G Ratio (test code = 1759-0) 1.2 1.2-2.2 Creatinine, Serum (test code = 2160-0) 0.57 mg/dL 0.57-1.00 Comp. Metabolic Panel ([id number]) ([id number])2016-08-15 00:00:00 Test Item Value Reference Range Comments A/G Ratio (test code = 1759-0) 1.3 1.1-2.5 Globulin, Total (test code = 15410-9) 3.2 g/dL 1.5-4.5 ALT (SGPT) (test code = 1742-6) 15 IU/L 0-32 AST (SGOT) (test code = 1920-8) 14 IU/L 0-40 Alkaline Phosphatase, S (test code = 6768-6) 74 IU/L 39- 117 Albumin, Serum (test code = 1751-7) 4.0 g/dL 3.6-4.8 Bilirubin, Total (test code = 1974-2) 0.6 mg/dL 0.0-1.2 Carbon Dioxide, Total (test code = 2027-9) 25 mmol/L 18-29 eGFR If Africn Am (test code = 66618-2) 92 mL/min/1.73 >59 Sodium, Serum (test code = 2951-2) 139 mmol/L 136-144 Creatinine, Serum (test code = 2160-0) 0.77 mg/dL 0.57-1.00 BUN (test code = 3094-0) 20 mg/dL 8-27 Glucose, Serum (test code = 2345-7) 177 mg/dL 65-99 eGFR If NonAfricn Am (test code = 02720-5) 80 mL/min/1.73 >59 BUN/Creatinine Ratio (test code = 3097-3) 26 11-26 Calcium, Serum (test code = 88244-5) 9.2 mg/dL 8.7-10.3 Protein, Total, Serum (test code = 2885-2) 7.2 g/dL 6.0-8 .5 Potassium, Serum (test code = 2823-3) 4.8 mmol/L 3.5-5.2 Chloride, Serum (test code = 2075-0) 99 mmol/L 97-106 Thyroid Panel w/ TSH ([id number]) (37397)2016-08-15 00:00:00 Test Item Value Reference Range Comments TSH (test code = 69271-0) 1.450 uIU/mL 0.450-4.500 Free Thyroxine Index (test code = 38618-2) 1.9 1.2-4 .9 T3 Uptake (test code = 3050-2) 23 % 24-39 Thyroxine (T4) (test code = 3026-2) 8.2 ug/dL 4.5-12.0 Hemoglobin A1c ([id number]) (22258)2016-08-15 00:00:00 Test Item Value Reference Range Comments Hemoglobin A1c (test code = 4548-4) 8.4 % 4.8-5.6 CMP w/ ESTIMATED GFR (S2402) (26224)2016-02-26 00:00:00 Test Item Value Reference Range Comments Est GFR, (test code = 76697-7) 80 mL/min ALT/SGPT (test code = 1742-6) 10 U/L 0-35 Potassium (test code = 2823-3) 4.5 mEq/L 3.5-5.3 Sodium (test code = 2951-2) 139 mEq/L 135-145 Glucose (test code = 2345-7) 147 mg/dL 70-99 Bilirubin, Total (test code = 1975-2) 0.4 mg/dL 0.2-1.2 Albumin (test code = 1751-7) 3.7 g/dL 3.5-5.2 Creatinine (test code = 2160-0) 0.87 mg/dL 0.50-1.10 Total Protein (test code = 2885-2) 7.1 g/dL 6.0-8.3 AST/SGOT (test code = 1920-8) 15 U/L 0-37 CO2 (test code = 2027-9) 28 mEq/L 19-32 Est GFR, NonAfrican Cuban (test code = 69 mL/min 98059-0) Alkaline Phosphatase (test code = 6768-6) 80 U/L 39-117 BUN (test code = 3094-0) 23 mg/dL 6-23 Chloride (test code = 2075-0) 103 mEq/L 96-112 Calcium (test code = 16353-7) 9.0 mg/dL 8.4-10.5 Hemoglobin A1c ([id number]) (97925)2016-02-26 00:00:00 Test Item Value Reference Range Comments Hemoglobin A1C (test code = 4548-4) 8.4 % <5.7 Estimated Average Glucose (test code = 87983-5) 194 mg/dL <117 Hemoglobin A1c ([id number]) (12944)2015-11-20 00:00:00 Test Item Value Reference Range Comments Hemoglobin A1C (test code = 4548-4) 8.3 % <5.7 Estimated Average Glucose (test code = 68186-6) 192 mg/dL <117 LIPID PANEL ([id number]) (04894)2015-11-20 00:00:00 Test Item Value Reference Range Comments LDL Cholesterol (Calc) (test code = 08789-0) 35 mg/dL 0-9 9 VLDL Cholesterol (Calc) (test code = 06437-5) 17 mg/dL 0- 40 Total Chol/HDL Ratio (test code = 9830-1) 2.5 Ratio HDL Cholesterol (test code = 5-9) 35 mg/dL >=46 Cholesterol (test code = 3-3) 87 mg/dL 0-200 Triglyceride (test code = 2571-8) 86 mg/dL <150 CMP w/ ESTIMATED GFR (S2402) ([id number])2015-11-20 00:00:00 Test Item Value Reference Range Comments Sodium (test code = 2951-2) 137 mEq/L 135-145 AST/SGOT (test code = 1920-8) 15 U/L 0-37 Chloride (test code = 2075-0) 103 mEq/L 96-112 Creatinine (test code = 2160-0) 0.60 mg/dL 0.50-1.10 Potassium (test code = 2823-3) 4.9 mEq/L 3.5-5.3 BUN (test code = 3094-0) 14 mg/dL 6-23 Bilirubin, Total (test code = 1974-2) 0.6 mg/dL 0.2-1.2 CO2 (test code = 2027-9) 30 mEq/L 19-32 Alkaline Phosphatase (test code = 6768-6) 78 U/L 39-117 Glucose (test code = 2345-7) 150 mg/dL 70-99 ALT/SGPT (test code = 1742-6) 13 U/L 0-35 Calcium (test code = 47298-7) 9.4 mg/dL 8.4-10.5 Est GFR, NonAfrican Cuban (test code = >89 mL/min 81992-1) Est GFR, (test code = 19976-0) >89 mL/min Total Protein (test code = 2885-2) 7.1 g/dL 6.0-8.3 Albumin (test code = 1751-7) 3.8 g/dL 3.5-5.2 TSH (THYROID STIMULATING HORMONE) ([id number]) (88345)2015-11-20 00:00:00 Test Item Value Reference Range Comments TSH (test code = 3016-3) 1.198 uIU/mL 0.350-4.500 Assessments Condition Name Status Diagnosis Date Treating Clinici an Biceps tendonitis Active Allergic rhinitis Active Adult body mass index 39.0-39.9 Active Adult body mass index 38.0-38.9 Active Adult body mass index 38.0-38.9 Active Adult body mass index 38.0-38.9 Active Breast cancer screening Active Breast cancer screening Active Breast cancer screening Active Breast cancer screening Active Pharyngitis, acute Active Pharyngitis, acute Active Pharyngitis, acute Active Pharyngitis, acute Active Pharyngitis, acute Active Cholelithiasis with cholecystitis Active Cholelithiasis with cholecystitis Active Cholelithiasis with cholecystitis Active Cholelithiasis with cholecystitis Active Cholelithiasis with cholecystitis Active Cholelithiasis with cholecystitis Active Joint pain Active Joint pain Active Joint pain Active Joint pain Active Joint pain Active Joint pain Active Joint pain Active PVC (premature ventricular contraction) Active PVC (premature ventricular contraction) Active PVC (premature ventricular contraction) Active PVC (premature ventricular contraction) Active PVC (premature ventricular contraction) Active PVC (premature ventricular contraction) Active PVC (premature ventricular contraction) Active PVC (premature ventricular contraction) Active Body mass index (BMI) of 40.0-44.9 in adult Active Body mass index (BMI) of 40.0-44.9 in adult Active Body mass index (BMI) of 40.0-44.9 in adult Active Body mass index (BMI) of 40.0-44.9 in adult Active Body mass index (BMI) of 40.0-44.9 in adult Active Body mass index (BMI) of 40.0-44.9 in adult Active Body mass index (BMI) of 40.0-44.9 in adult Active Body mass index (BMI) of 40.0-44.9 in adult Active Bursitis, shoulder, right Active Bursitis, shoulder, right Active Bursitis, shoulder, right Active Bursitis, shoulder, right Active Bursitis, shoulder, right Active Bursitis, shoulder, right Active Bursitis, shoulder, right Active Bursitis, shoulder, right Active Bursitis, shoulder, right Active Bursitis, shoulder, right Active GERD (gastroesophageal reflux disease) Active GERD (gastroesophageal reflux disease) Active GERD (gastroesophageal reflux disease) Active GERD (gastroesophageal reflux disease) Active GERD (gastroesophageal reflux disease) Active GERD (gastroesophageal reflux disease) Active GERD (gastroesophageal reflux disease) Active GERD (gastroesophageal reflux disease) Active GERD (gastroesophageal reflux disease) Active GERD (gastroesophageal reflux disease) Active Encounter for vitamin deficiency screening Active Encounter for vitamin deficiency screening Active Encounter for vitamin deficiency screening Active Encounter for vitamin deficiency screening Active Encounter for vitamin deficiency screening Active Encounter for vitamin deficiency screening Active Encounter for vitamin deficiency screening Active Encounter for vitamin deficiency screening Active Encounter for vitamin deficiency screening Active Encounter for vitamin deficiency screening Active Fatigue Active Fatigue Active Fatigue Active Fatigue Active Fatigue Active Fatigue Active Fatigue Active Fatigue Active Fatigue Active Fatigue Active Encounter for health education Active Encounter for health education Active Encounter for health education Active Encounter for health education Active Encounter for health education Active Encounter for health education Active Encounter for health education Active Encounter for health education Active Encounter for health education Active Encounter for health education Active Acute follicular tonsillitis Active Acute follicular tonsillitis Active Acute follicular tonsillitis Active Acute follicular tonsillitis Active Acute follicular tonsillitis Active Acute follicular tonsillitis Active Acute follicular tonsillitis Active Acute follicular tonsillitis Active Acute follicular tonsillitis Active Acute follicular tonsillitis Active Wheezing Active Wheezing Active Wheezing Active Wheezing Active Wheezing Active Wheezing Active Wheezing Active Wheezing Active Wheezing Active Wheezing Active Travel sickness Active Travel sickness Active Travel sickness Active Travel sickness Active Travel sickness Active Travel sickness Active Travel sickness Active Travel sickness Active Travel sickness Active Travel sickness Active Low back pain Active Low back pain Active Low back pain Active Low back pain Active Low back pain Active Low back pain Active Low back pain Active Low back pain Active Low back pain Active Low back pain Active Erythema nodosum Active Erythema nodosum Active Erythema nodosum Active Erythema nodosum Active Erythema nodosum Active Erythema nodosum Active Erythema nodosum Active Erythema nodosum Active Erythema nodosum Active Erythema nodosum Active Edema Active Edema Active Edema Active Edema Active Edema Active Edema Active Edema Active Edema Active Edema Active Edema Active RAD (reactive airway disease) with wheezing Active RAD (reactive airway disease) with wheezing Active RAD (reactive airway disease) with wheezing Active RAD (reactive airway disease) with wheezing Active RAD (reactive airway disease) with wheezing Active RAD (reactive airway disease) with wheezing Active RAD (reactive airway disease) with wheezing Active RAD (reactive airway disease) with wheezing Active RAD (reactive airway disease) with wheezing Active RAD (reactive airway disease) with wheezing Active Right lower lobe pneumonia Active Right lower lobe pneumonia Active Right lower lobe pneumonia Active Right lower lobe pneumonia Active Right lower lobe pneumonia Active Right lower lobe pneumonia Active Right lower lobe pneumonia Active Right lower lobe pneumonia Active Right lower lobe pneumonia Active Right lower lobe pneumonia Active Cough Active Cough Active Cough Active Cough Active Cough Active Cough Active Cough Active Cough Active Cough Active Cough Active Acute UTI (599.0) Active Acute UTI (599.0) Active Acute UTI (599.0) Active Acute UTI (599.0) Active Acute UTI (599.0) Active Acute UTI (599.0) Active Acute UTI (599.0) Active Acute UTI (599.0) Active Acute UTI (599.0) Active Acute UTI (599.0) Active Abdominal cramping in right upper quadrant Active Abdominal cramping in right upper quadrant Active Abdominal cramping in right upper quadrant Active Abdominal cramping in right upper quadrant Active Abdominal cramping in right upper quadrant Active Abdominal cramping in right upper quadrant Active Abdominal cramping in right upper quadrant Active Abdominal cramping in right upper quadrant Active Abdominal cramping in right upper quadrant Active Abdominal cramping in right upper quadrant Active Chest pain on respiration (786.52) Active Chest pain on respiration (786.52) Active Chest pain on respiration (786.52) Active Chest pain on respiration (786.52) Active Chest pain on respiration (786.52) Active Chest pain on respiration (786.52) Active Chest pain on respiration (786.52) Active Chest pain on respiration (786.52) Active Chest pain on respiration (786.52) Active Chest pain on respiration (786.52) Active Influenza vaccine needed Active Influenza vaccine needed Active Influenza vaccine needed Active Influenza vaccine needed Active Influenza vaccine needed Active Influenza vaccine needed Active Influenza vaccine needed Active Influenza vaccine needed Active Influenza vaccine needed Active Influenza vaccine needed Active Pancreatitis, acute (577.0) Active Pancreatitis, acute (577.0) Active Pancreatitis, acute (577.0) Active Pancreatitis, acute (577.0) Active Pancreatitis, acute (577.0) Active Pancreatitis, acute (577.0) Active Pancreatitis, acute (577.0) Active Pancreatitis, acute (577.0) Active Pancreatitis, acute (577.0) Active Pancreatitis, acute (577.0) Active Sebaceous cyst Active Sebaceous cyst Active Sebaceous cyst Active Sebaceous cyst Active Sebaceous cyst Active Sebaceous cyst Active Sebaceous cyst Active Sebaceous cyst Active Sebaceous cyst Active Sebaceous cyst Active SCREENING MAMMOGRAM NEC (V76.12) Active SCREENING MAMMOGRAM NEC (V76.12) Active SCREENING MAMMOGRAM NEC (V76.12) Active SCREENING MAMMOGRAM NEC (V76.12) Active SCREENING MAMMOGRAM NEC (V76.12) Active SCREENING MAMMOGRAM NEC (V76.12) Active SCREENING MAMMOGRAM NEC (V76.12) Active SCREENING MAMMOGRAM NEC (V76.12) Active SCREENING MAMMOGRAM NEC (V76.12) Active SCREENING MAMMOGRAM NEC (V76.12) Active Hyperlipidemia Active Hypothyroidism Active Hyperlipidemia Active Hypothyroidism Active Hyperlipidemia Active Hypothyroidism Active Hypothyroidism Active Hyperlipidemia Active Hyperlipidemia Active Hypothyroidism Active Hyperlipidemia Active Hypothyroidism Active Hyperlipidemia Active Hypothyroidism Active Hyperlipidemia Active Hypothyroidism Active Hyperlipidemia Active Hypothyroidism Active Hyperlipidemia Active Hypothyroidism Active Diabetes (250.00) Active Diabetes (250.00) Active Diabetes (250.00) Active Diabetes (250.00) Active Diabetes (250.00) Active Diabetes (250.00) Active Diabetes (250.00) Active Diabetes (250.00) Active Diabetes (250.00) Active Diabetes (250.00) Active Cervical pain Active Cervical pain Active Pain in rib Active Pain in rib Active Pain in rib Active Cervical pain Active Pain in rib Active Cervical pain Active Pain in rib Active Cervical pain Active Pain in rib Active Cervical pain Active Pain in rib Active Cervical pain Active Pain in rib Active Cervical pain Active Pain in rib Active Cervical pain Active Pain in rib Active Cervical pain Active Dizziness Active Dizziness Active Dizziness Active Dizziness Active Dizziness Active Dizziness Active Dizziness Active Dizziness Active Dizziness Active Dizziness Active 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 Syndrome, carpal tunnel (354.0) Active 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 Syndrome, carpal tunnel (354.0) Active 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 Syndrome, carpal tunnel (354.0) Active 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 Syndrome, carpal tunnel (354.0) Active 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 Syndrome, carpal tunnel (354.0) Active 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 Syndrome, carpal tunnel (354.0) Active 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 Syndrome, carpal tunnel (354.0) Active 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 Syndrome, carpal tunnel (354.0) Active 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 Syndrome, carpal tunnel (354.0) Active 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 Syndrome, carpal tunnel (354.0) Active 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 Encounters Start End Encounter Admission Attending Care Care Encounter Date/Time Date/Time Type Type Clinicians Facility Department ID 2017-10-22 2017-10-22 Outpatient Anthony, [facility] Debbie [id number] 09:13:00 09:13:00 [facility] 2017-08-31 2017-08-31 Outpatient Anthony, [facility] Debbie [id number] 11:36:00 11:36:00 [facility] 2017-06-11 2017-06-11 Outpatient Anthony, [facility] Debbie [id number] 10:52:00 10:52:00 [facility] 2017-03-09 2017-03-09 Outpatient Anthony, [facility] Debbie [id number] 08:18:00 08:18:00 [facility] 2016-12-07 2016-12-07 Outpatient Anthony, [facility] Debbie [id number] 09:43:00 09:43:00 [facility] 2016-12-04 2016-12-04 [facility] [id number] 11:08:00 11:08:00 [facility] 2016-10-22 2016-10-22 [facility] [id number] 08:25:00 08:25:00 [facility] 2016-08-14 2016-08-14 [facility] [id number] 08:41:00 08:41:00 [facility] 2016[facility]02-25 [id number] 13:06[facility]00 [facility] 2015-11-19 2015[facility]11-[id number] 08:54:00 08:54:00 [facility] Social History This patient has no known social history. Vital Signs This patient has no known vital signs.
== END ==
LOC: OD 08:13
PROVIDERS: ATTEND Family Medicine
DX: E11.9 Type 2 diabetes mellitus without complications (principal); E78.5 Hyperlipidemia, unspecified; Z79.899 Other long term (current) drug therapy
CPT/HCPCS: 36415; 80048; 80061; 83036; 84443